=== PATIENT | male | born 1955 | race African-American/Black ===

== ENCOUNTER 2018-03-31 12:45 | Inpatient (IN) ==
[2018-03-31] MEDS ORDERED: KEPPRA 1,000 MG in NS 100 ML IV ONE (13:24)
[2018-03-31] MEDS ORDERED: ATIVAN IV ONE (13:25)
[2018-03-31] MEDS ORDERED: NS 1,000 ML IV ONE ×2 (13:28→19:57)
--- NOTE | 2018-03-31 13:40 | PROVIDER DOCUMENTATION ---
This chart was entered by Lisa Prakash Scribe, acting as scribe for Luciana Jackson MD. HPI-Neurological Disorder - General Chief Complaint: Seizure Stated Complaint: SEIZURE Time Seen by Provider: 03/31/18 13:05 Source: patient, family Allergies/Adverse Reactions: Patient Allergies Allergy/AdvReac Type Severity Reaction Status Date / Time No Known Allergies Allergy Verified 07/13/15 13:32 Home Medications: Home Medication List Medication Instructions Recorded Confirmed Last Taken Type Benazepril/Hydrochlorothiazide 1 each PO DAILY 03/27/14 07/13/15 07/12/15 09:00 History [Benazepril-Hctz 20-25 mg Tab] Losartan [Cozaar] 50 mg PO DAILY 03/27/14 07/13/15 07/12/15 09:00 History Pravastatin Sodium [Pravachol] 20 mg PO HS 03/27/14 07/13/15 07/12/15 20:00 History Famotidine [Pepcid] 40 mg PO DAILY #60 tablet 07/13/15 Unknown Rx Ondansetron Odt [Zofran 8Mg Odt] 8 mg PO Q8H PRN PRN #20 tablet 07/13/15 Unknown Rx - History of Present Illness-Neuro Nature of Presenting Problem: 62 y/o male presents to the ED via EMS after seizure-like activity witnessed by family and also by EMS upon arrival with mild bilateral frontal headache and incontinent of urine. 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 The patient does not remember seizure activity and episodes seem to be approximately every 30 minutes with left arm tightness in flexed position which remains after seizure activity, and leaning to the right during seizure activity and also afterward. The patient is able to talk during seizure activity. The patient does give a history of daily alcohol intake with last drink yesterday of 1/2 to 1 pint of Vodka. Headache Location: reports: frontal (mild bilateral) Onset/Duration: reports: just prior to arrival Timing: reports: intermittent Context: reports: seizure activity Character of Altered Mental Status: reports: seizure activity Any recent trauma/injury?: reports: none Cognitive Baseline: alert, oriented x3 Gait Baseline: other (paraplegic) Associated Symptoms: reports: headache (mild bilateral frontal), seizures. denies: fever/chills, diaphoretic, ringing in ears, vomiting Similar Symptoms Previously?: No Recently seen or treated by another doctor?: No - Seizure First time to have a seizure?: Yes Witnessed seizure?: Yes (family and EMS ) How many seizure episodes?: 3 Approximate time seizures began?: 08:30 Approximate time of the last seizure?: 13:20 Episode Frequency: no prior episodes Status Epilepticus: No Preceding symptoms/context:: recent alcohol or drug use Character of Seizure: reports: lost consciousness, generalized shaking all over Post-ictal Symptoms: reports: headache (mild bilateral frontal) Seizure related injury: none Review of Systems - Adult - REVIEW OF SYSTEMS - ADULT Constitutional: denies: chills, fever, night sweats Eyes: reports: no symptoms reported Ears, Nose, Mouth & Throat: reports: no symptoms reported Cardiovascular: denies: chest pain, palpitations, syncope Respiratory: denies: cough, hemoptysis, shortness of breath, wheezing Gastrointestinal: denies: abdominal pain, diarrhea, nausea, vomiting Genitourinary: reports: other (incontinent of urine following seizure). denies : dysuria, discharge, hematuria Musculoskeletal: reports: no symptoms reported Integumentary: reports: no symptoms reported Neurological: reports: headache/migraines (bilateral frontal), seizure. denies : dizziness/vertigo Psychiatric: reports: no symptoms reported Endocrine: reports: no symptoms reported Hematologic/Lymphatic: reports: no symptoms reported Allergic/Immunologic: reports: no symptoms reported All Other Systems: Reviewed and Negative Past History - Adult - PAST MEDICAL HISTORY-ADULT Review of Records: reports: Old Records Reviewed, Nursing Assessment Review, Medications Reviewed Major Childhood Illnesses: reports: denies history Cardiovascular: reports: HTN Respiratory: reports: denies history Gastrointestinal: reports: denies history Obstetrical/Gynecological: reports: denies history Genitourinary: reports: denies history Musculoskeletal: reports: denies history Neurological: reports: denies history Endocrine/Immune: reports: denies history Other Conditions: reports: denies history - PRIOR SURGERIES/PROCEDURES Surgical/Procedure History: reports: colonoscopy - IMMUNIZATION STATUS Childhood Immunizations: NUTD Flu Vaccine: NUTD - FAMILY HISTORY Family History: reviewed, not pertinent - SOCIAL HISTORY Smoking: cigarettes, greater than 1 pack/day Provider spent 3-5 mins advising pt. on dangers of tobacco.: Discussed manners to quit use, and f/u contacts for add'l counseling. Substance Use: alcohol, marijuana Alcohol Use Frequency: every day Living Situation: family Physical Exam- Neurological - Physical Exam-Neuro Initial Vital Signs Reviewed: Yes General Appearance: alert, other (The patient is leaning to the right) Eye Exam: bilateral eye: normal inspection, PERRL, EOMI HENMT: normocephalic/atraumatic, moist mucous membranes, normal ENT inspection, TMs normal, pharynx normal Head Injury: no evidence of injury. negative: Cedeno's Sign, lacerations, raccoon eyes Neck: non-tender, full range of motion, supple Respiratory: chest non-tender, lungs clear, normal breath sounds, no pleuratic chest pain, no respiratory distress, no accessory muscle use. negative: rales, wheezing Cardiovascular: normal peripheral pulses, regular rate, rhythm, no gallop, no JVD Abdominal Exam: normal bowel sounds, non tender, soft, no organomegaly, no pulsatile mass Lymphatic: no adenopathy Peripheral Pulses: radial (R): 2+, radial (L): 2+, dorsalis-pedis (R): 2+, dorsalis-pedis (L): 2+ Extremity: other ("partial paraplegic" pt able at baseline to ambulate with difficulty, LUE is held flexed at elbow with hand closed, he cannot open the hand or extend at the elbow, mild tremors LLE, was leaning to the right right after an episode when I walked into the room, is able to sit upright now without help between episodes) 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 He is a smoker). negative: aphasia, facial droop Integumentary: normal color, warm/dry Psych/Mental Status: oriented x 3 Progress - PLAN OF CARE/RESULTS Progress/Plan/Lab Results: Vital Signs - 8 hr 03/31/18 12:49 03/31/18 13:27 Pulse Rate 89 Respiratory Rate 16 Blood Pressure 201/115 167/111 O2 Sat by Pulse Oximetry 99 Laboratory Results - last 24 hr 03/31/18 03/31/18 03/31/18 13:46 13:46 14:58 WBC 5.33 RBC 6.11 H Hgb 17.6 Hct 54.1 H MCV 88.5 MCH 28.8 MCHC 32.5 L RDW Std Deviation 16.8 H Plt Count 191 MPV 11.0 H Immature Gran % (Auto) 0.0 Neut % (Auto) 82.3 H Lymph % (Auto) 13.9 L [place] % (Auto) 3.4 Eos % (Auto) 0.2 Baso % (Auto) 0.2 Immature Gran # (Auto) 0.00 Neut # (Auto) 4.39 Lymph # (Auto) 0.74 L [place] # (Auto) 0.18 Eos # (Auto) 0.01 Baso # (Auto) 0.01 PT 13.2 INR 0.93 PTT (Actin FS) 30.6 Sodium Potassium Chloride Carbon Dioxide Anion Gap BUN Creatinine Estimated GFR/1.73 m2 BUN/Creatinine Ratio Glucose Calculated Osmolality Calcium Magnesium Total Bilirubin AST ALT Alkaline Phosphatase Creatine Kinase Troponin T Total Protein Albumin Globulin Albumin/Globulin Ratio Urine Source CATH Urine Color YELLOW Urine Turbidity CLEAR Urine pH 6.0 Ur Specific [place] 1.016 Urine Protein 70 A Ur Glucose (Stick) NEGATIVE Ur Ketones (Stick) TRACE A Urine Blood SMALL A Urine Nitrite NEGATIVE Urine Bilirubin NEGATIVE Urobilinogen Dipstick 3 A Urine Leukocytes NEGATIVE Urine WBC (Auto) <10 Urine RBC (Auto) <10 U Epithel Cells (Auto) <10 Urine Bacteria (Auto) NEGATIVE Urine Opiates Screen Ur Oxycodone Screen Ur Methadone, Qual Ur Barbiturates Screen Ur Phencyclidine Scrn Ur Amphetamines Screen U Benzodiazepines Scrn Urine Cocaine Screen U Cannabinoids Screen Plasma/Serum Ethyl Alc 03/31/18 03/31/18 03/31/18 14:58 17:47 17:47 WBC RBC Hgb Hct MCV MCH MCHC RDW Std Deviation Plt Count MPV Immature Gran % (Auto) Neut % (Auto) Lymph % (Auto) [place] % (Auto) Eos % (Auto) Baso % (Auto) Immature Gran # (Auto) Neut # (Auto) Lymph # (Auto) [place] # (Auto) Eos # (Auto) Baso # (Auto) PT INR PTT (Actin FS) Sodium 137 Potassium 4.0 Chloride 101 Carbon Dioxide 23 L Anion Gap 13 BUN 8 Creatinine 0.6 L Estimated GFR/1.73 m2 > 60 BUN/Creatinine Ratio 13 Glucose 106 H Calculated Osmolality 273 Calcium 8.5 L Magnesium 1.5 Total Bilirubin 0.66 AST 15 ALT 6 L Alkaline Phosphatase 52 Creatine Kinase 90 Troponin T Total Protein 5.6 L Albumin 3.8 Globulin 1.8 Albumin/Globulin Ratio 2.1 Urine Source Urine Color Urine Turbidity Urine pH Ur Specific [place] Urine Protein Ur Glucose (Stick) Ur Ketones (Stick) Urine Blood Urine Nitrite Urine Bilirubin Urobilinogen Dipstick Urine Leukocytes Urine WBC (Auto) Urine RBC (Auto) U Epithel Cells (Auto) Urine Bacteria (Auto) Urine Opiates Screen NONE DETECTED Ur Oxycodone Screen NONE DETECTED Ur Methadone, Qual NONE DETECTED Ur Barbiturates Screen NONE DETECTED Ur Phencyclidine Scrn NONE DETECTED Ur Amphetamines Screen NONE DETECTED U Benzodiazepines Scrn NONE DETECTED Urine Cocaine Screen NONE DETECTED U Cannabinoids Screen PRESUMPTIVE POSITIVE A Plasma/Serum Ethyl Alc 03/31/18 17:47 WBC RBC Hgb Hct MCV MCH MCHC RDW Std Deviation Plt Count MPV Immature Gran % (Auto) Neut % (Auto) Lymph % (Auto) [place] % (Auto) Eos % (Auto) Baso % (Auto) Immature Gran # (Auto) Neut # (Auto) Lymph # (Auto) [place] # (Auto) Eos # (Auto) Baso # (Auto) PT INR PTT (Actin FS) Sodium Potassium Chloride Carbon Dioxide Anion Gap BUN Creatinine Estimated GFR/1.73 m2 BUN/Creatinine Ratio Glucose Calculated Osmolality Calcium Magnesium Total Bilirubin AST ALT Alkaline Phosphatase Creatine Kinase Troponin T < 0.010 Total Protein Albumin Globulin Albumin/Globulin Ratio Urine Source Urine Color Urine Turbidity Urine pH Ur Specific [place] Urine Protein Ur Glucose (Stick) Ur Ketones (Stick) Urine Blood Urine Nitrite Urine Bilirubin Urobilinogen Dipstick Urine Leukocytes Urine WBC (Auto) Urine RBC (Auto) U Epithel Cells (Auto) Urine Bacteria (Auto) Urine Opiates Screen Ur Oxycodone Screen Ur Methadone, Qual Ur Barbiturates Screen Ur Phencyclidine Scrn Ur Amphetamines Screen U Benzodiazepines Scrn Urine Cocaine Screen U Cannabinoids Screen Plasma/Serum Ethyl Alc Orders Category Date Time Status Cardiac Monitoring DIRECTED Care 03/31/18 13:27 Active Saline Loc DIRECTED Care 03/31/18 13:24 Active CHEST-PORTABLE [RAD] Stat Exams 03/31/18 13:[address] HEAD W/O CONTRAST [CT] Stat Exams 03/31/18 13:25 Completed ALCOHOL BLOOD Stat Lab 03/31/18 17:47 Completed BLOOD CULTURE [BLDCUL] Stat Lab 03/31/18 17:47 Results CBC WITH ELECTRONIC DIFF [HEME] Stat Lab 03/31/18 13:46 Completed CK TOTAL [CHEM] Stat Lab 03/31/18 17:47 Completed COMPREHENSIVE METABOLIC PANEL [CHEM] Stat Lab 03/31/18 17:47 Completed MAGNESIUM [CHEM] Stat Lab 03/31/18 17:47 Completed PROTIME WITH INR [COAG] Stat Lab 03/31/18 13:46 Completed PTT [COAG] Stat Lab 03/31/18 13:46 Completed TROPONIN T Stat Lab 03/31/18 17:47 Completed URINALYSIS W/POSS RFLX CULT [URINALYSIS] Stat Lab 03/31/18 14:58 Completed URINE DRUG SCREEN Stat Lab 03/31/18 14:58 Completed 0.9% Sodium Chloride Inj [Ns] 1,000 ml Med 03/31/18 13:28 Discontinued IV 999 mls/hr Clonidine [Catapres] Med 03/31/18 19:42 Discontinued 0.2 mg PO NOW ONE Levetiracetam [Keppra] 1,000 mg Med 03/31/18 13:24 Discontinued 0.9% Sodium Chloride Inj [Ns] 100 ml IV NOW Lorazepam [Ativan] Med 03/31/18 13:25 Discontinued 1 mg IV NOW ONE Oxygen Device Stat Oth 03/31/18 13:26 Active Pulse Oximetry Stat Oth 03/31/18 13:[address] no acute findings, same with chest xray, UA and UDS back - THC, blood work? charge nurse looking into it blood was found in lab and processed, N% shift without increase in total count per VS DBP still high, ordered clonidine and walked into the room and BP wnl, told RN I was cancelling the clonidine and it was 'discontinued' so I am not sure if it was given or not sisters in the room, apologized for the delay on labs and on my delay in returning to the room due to multiple highly critical patients, [address] Santso hospitalist re [facility] labs treatment current status need for overnight obs, agreed to admit Result Diagrams: 03/31/18 13:46 03/31/18 17:47 Departure - Departure Date of Disposition Decision: 03/31/18 Time of Disposition Decision: 19:58 DIAGNOSIS: Focal seizures, Alcohol abuse, Tobacco dependence Disposition: ADMITTED INPATIENT 09 Certified Medical Emergency: Emergent Condition: Good Additional Freetext Instructions: admit to Dr Santos Referrals and Follow-Ups: Lulu Hernandez CRNP [Primary Care Provider] - - Critical Care Note This patient required my direct & personal management of CC.: Yes Total Time (mins): 30 Critical Care Statement: This patient required my direct personal management to treat or rule out processes, the absence of which, could potentiallly result in sudden, clinically significant life or limb threatening deterioration. Attestation - Physician/ SARAH Attestation The physician spent face to face time with patient:: Yes Advanced Practice Provider documentation review:: Supervising physician onsite and consulted in the evaluation and care of this patient. The physician did have a face to face encounter with the patient. - NIH Stroke Scale Level of Consciousness: 0-Alert LOC Questions (ask month and age): 0-Answers Both Correctly LOC Commands (ask to open & close eyes;make a fist, let go): 0-Obeys Both Correctly Best Gaze (horizontal eye movement): 0-Normal Visual (use finger movement, counting or visual threat): 0-No Visual Loss Facial Palsy (show teeth or raise eyebrows & close eyes tght: 0-Symmetrical Movement Motor Function-left arm: 0-Untestable Motor Function-right arm: 0-Normal Motor Function-left le-No Effort Against [place] Motor Function-right le-No Effort Against [place] Limb Ataxia(aenblf-ybmn-[id number], or heel to sin): 0-Untestable Sensory(pin prick to face,arms,trunk,legs-compare side/side): 0-No Ataxia Best Language(name item/read sentence.Ex-Down to Earth): 0-No Aphasia Dysarthria(Pt read words or say words Ex.Mama,Tip-Top,Thanks: 0-Normal Articulation Extinction and Inattention: 0-Normal NIH Total Score: 6 (primarily related to BLE which are 'partial paraplegic') This chart was documented by the indicated scribe, (Lisa Prakash, Scribe) and accurately reflects the services I performed and decisions made by me, Luciana Jackson MD, as attested by the provider's signature.
[2018-03-31 15:08] LABS: URINE SOURCE CATH
[2018-03-31 15:15] LABS: BILIRUBIN URINE NEGATIVE (NEGATIVE); BLOOD URINE SMALL (NEGATIVE); COLOR YELLOW; GLUCOSE URINE NEGATIVE (NEGATIVE); KETONE URINE TRACE mg/dL (NEGATIVE); LEUKOCYTES URINE NEGATIVE (NEGATIVE); NITRITE URINE NEGATIVE (NEGATIVE); PROTEIN URINE 70 mg/dL (NEGATIVE); SP GRAVITY URINE 1.016; TURBIDITY URINE CLEAR (CLEAR); UROBILINOGEN URINE 3 mg/dL (NORMAL)
[2018-03-31 15:16] LABS: UR EPITHELIAL CELLS <10 /HPF (<10); URINE BACTERIA NEGATIVE /HPF; URINE RBC <10 /HPF (<10); URINE WBC <10 /HPF (<10)
[2018-03-31 15:23] LABS: UR AMPHETAMINES QUAL NONE DETECTED (NONE DETECT); UR BARBITUATES QUAL NONE DETECTED (NONE DETECT); UR BENZODIAZEPIN QUAL NONE DETECTED (NONE DETECT); UR CANNABINOIDS QUAL PRESUMPTIVE POSITIVE (NONE DETECT); UR COCAINE QUAL NONE DETECTED (NONE DETECT); UR METHADONE QUAL NONE DETECTED (NONE DETECT); UR OPIATES QUAL NONE DETECTED (NONE DETECT); UR OXYCODONE QUAL NONE DETECTED (NONE DETECT); UR PCP QUAL NONE DETECTED (NONE DETECT)
--- NOTE | 2018-03-31 15:31 | Diag Imaging Result Doc PS360 ---
EXAM: CT HEAD W/O CONTRAST 03/31/2018 HISTORY: head TECHNIQUE: This exam was performed using automated exposure control, adjustment of mA or kV according to patient size, and/or use of iterative reconstruction technique. COMMENT: There is encephalomalacia throughout much of the posterior temporal and parietal cortex and subcortical white matter on the right. This was not the case on 03/27/2014. There is no evidence of bleed or abnormal extra-axial fluid collection. There are several dystrophic calcifications in the right infarct. The visualized paranasal sinuses are clear with the exception of the left maxillary sinus where there is marked mucosal thickening. The right-sided fluid and thickening which was present on the previous study has resolved. IMPRESSION: Old right temporoparietal infarct. Chronic left maxillary sinusitis. Electronically signed by Alban Bentley 03/31/2018 3:29 PM
--- NOTE | 2018-03-31 15:32 | Diag Imaging Result Doc PS360 ---
EXAM: CHEST-PORTABLE 03/31/2018 HISTORY: cough TECHNIQUE: AP upright chest at 1523 COMMENT: There is no evidence of acute cardiac or pulmonary disease. Compared to 03/27/2014 there has been no significant change considering differences in technique. IMPRESSION: Stable chest. Electronically signed by Alban Bentley 03/31/2018 3:30 PM
[2018-03-31 17:48] LABS: INR 0.93; PROTIME 13.2 Seconds (11.0-16.0); PTT 30.6 Seconds (22.3-41.8)
[2018-03-31 18:03] LABS: BASO# 0.01 X1000 (0.0-0.2); BASO% 0.2 % (0.0-0.8); EOS# 0.01 X1000 (0.0-0.7); EOS% 0.2 % (0.0-10.0); HEMATOCRIT 54.1 % (42.0-52.0); HEMOGLOBIN 17.6 g/dL (14.0-18.0); LYMPH# 0.74 X1000 (1.2-3.4); LYMPH% 13.9 % (20.5-51.1); MCH 28.8 PG (27-31); MCHC 32.5 g/dL (33-37); MCV 88.5 FL (81-99); MONO# 0.18 X1000 (0.11-0.59); MONO% 3.4 % (1.7-9.3); NEUT# 4.39 X1000 (1.4-6.5); NEUT% 82.3 % (42.2-75.2); PLT 191 X1000 (130-400); RBC 6.11 XMIL (4.7-6.1); RDW 16.8 % (11.5-14.5); WBC 5.33 X1000 (4.8-10.8)
[2018-03-31 18:29] LABS: AGAP 13; ALB/GLOB RATIO 2.1; ALBUMIN 3.8 g/dL (3.5-5.0); ALKALINE PHOSPHATASE 52 U/L (32-122); BUN 8 mg/dL (8-22); CALCIUM 8.5 mg/dL (8.8-10.2); CHLORIDE 101 mmol/L (98-107); CK TOTAL 90 U/L (24-204); COSMO 273; CREATININE 0.6 mg/dL (0.7-1.2); ESTIMATED GFR > 60; GLUCOSE 106 mg/dL (70-104); GOT 15 U/L (10-34); GPT 6 U/L (10-44); MAGNESIUM 1.5 mg/dL (1.5-2.7); SODIUM 137 mmol/L (136-145); TCO2 23 mmol/L (25-35); TOTAL BILIRUBIN 0.66 mg/dL (0.20-1.00); TOTAL PROTEIN 5.6 g/dL (6.3-8.3)
[2018-03-31] MEDS ORDERED: CATAPRES PO ONE (19:42)
--- NOTE | 2018-03-31 21:24 | HISTORY AND PHYSICAL ---
PRIMARY CARE PHYSICIAN: None. CHIEF COMPLAINT: Seizure-like activity. HISTORY OF PRESENTING ILLNESS: A 62-year-old male with a history of hypertension and left-sided paresis from chronic nerve damage who had presented to emergency department because family witnessed seizure-like activity. The patient apparently has a history of chronic alcoholism drinking about a pint of vodka per day. He states his last drink was yesterday or so. He was evaluated in the emergency department and due to his presenting symptoms, it was thought that we will place him for observation for further evaluation. At the time of my examination he denied any fever, chills, chest pain, shortness of breath, hemoptysis but complained of having a headache. PAST MEDICAL HISTORY: Of hypertension. PAST SURGICAL HISTORY: Cervical fusion. ALLERGIES: No known drug allergies. CURRENT MEDICATIONS: As listed in medication reconciliation sheet. SOCIAL HISTORY: A 30 pack years history of smoking. Admits to drinking beer and vodka daily, admits to marijuana use. FAMILY HISTORY: Positive for coronary disease father. REVIEW OF SYSTEMS: Fourteen point review of systems is as in HPI other systems negative. PHYSICAL EXAMINATION: GENERAL: Cooperative, friendly male, he is resting comfortably now. VITAL SIGNS: Pulse 89, respiratory 16, blood pressure 167/111. HEENT: Atraumatic normocephalic. Extraocular movements intact. PERRLA. NECK: No masses. CHEST: Clear to auscultation. CARDIOVASCULAR: Regular rate and rhythm. ABDOMEN: Soft, positive bowel sounds. EXTREMITIES: No edema. NEURO: Awake, alert, oriented x3. Strength 3/5 left upper and lower extremities . : No bladder distention. SKIN: Warm. LABORATORIES AND STUDIES: WBC 5.33, hemoglobin 17.6, hematocrit 54.1, platelets 191,000. Sodium 137, potassium 4.0, chloride 100, CO2 23, BUN is 8, creatinine 0.86, glucose 106. ASSESSMENT: A 62-year-old male with a history of hypertension and chronic alcoholism who had presented to emergency department when family witnessed seizure-like activity. He was evaluated in the emergency department. Due to his presenting symptoms will place him for observation further evaluation and management . 1. Possible seizure secondary to alcohol withdrawal. 2. Hypertension. 3. Tobacco abuse. PLAN: 1. We will admit patient to medical floor with telemetry. 2. We will put patient on seizure precautions. 3. Will use Ativan p.r.n. 4. We will start patient on banana bag. 5. Counseled him on smoking and alcohol cessation. 6. Monitor blood pressure closely. 7. Put patient on DVT prophylaxis SCD. 8. Continue follow and reassess make further recommendation based on patient's clinical course. cc: Nilay Santos MD MTDD
[2018-04-01] MEDS ORDERED: M.V.I.-12 10 ML, FOLIC ACID 1 MG, MAGNESIUM SULFATE 1 GM, THIAMINE 100 MG in NS 1,000 ML IV ONE (03:04)
[2018-04-01] MEDS ORDERED: ATIVAN IV PRN (03:04)
[2018-04-01] MEDS ORDERED: ZOFRAN IV PRN (03:04)
[2018-04-01 04:11] LABS: BASO# 0.01 X1000 (0.0-0.2); BASO% 0.2 % (0.0-0.8); EOS# 0.04 X1000 (0.0-0.7); EOS% 0.7 % (0.0-10.0); HEMATOCRIT 42.8 % (42.0-52.0); HEMOGLOBIN 14.2 g/dL (14.0-18.0); LYMPH# 2.25 X1000 (1.2-3.4); MCH 29.3 PG (27-31); MCHC 33.2 g/dL (33-37); MCV 88.4 FL (81-99); MONO# 0.38 X1000 (0.11-0.59); MONO% 6.8 % (1.7-9.3); MPV 10.1 FL (7.4-10.4); NEUT# 2.94 X1000 (1.4-6.5); NEUT% 52.3 % (42.2-75.2); PLT 172 X1000 (130-400); RBC 4.84 XMIL (4.7-6.1); RDW 15.9 % (11.5-14.5); WBC 5.62 X1000 (4.8-10.8)
[2018-04-01 04:16] LABS: AGAP 11; ALB/GLOB RATIO 1.6; ALBUMIN 3.3 g/dL (3.5-5.0); ALKALINE PHOSPHATASE 46 U/L (32-122); BUN 8 mg/dL (8-22); CHLORIDE 105 mmol/L (98-107); COSMO 278; CREATININE 0.6 mg/dL (0.7-1.2); ESTIMATED GFR > 60; GLUCOSE 104 mg/dL (70-104); GOT 15 U/L (10-34); GPT 6 U/L (10-44); MAGNESIUM 1.5 mg/dL (1.5-2.7); POTASSIUM 3.3 mmol/L (3.5-5.1); SODIUM 140 mmol/L (136-145); TCO2 24 mmol/L (25-35); TOTAL BILIRUBIN 0.97 mg/dL (0.20-1.00); TOTAL PROTEIN 5.4 g/dL (6.3-8.3)
[2018-04-01 07:55] LABS: BASO# 0.01 X1000 (0.0-0.2); BASO% 0.2 % (0.0-0.8); EOS# 0.02 X1000 (0.0-0.7); EOS% 0.4 % (0.0-10.0); HEMATOCRIT 44.1 % (42.0-52.0); HEMOGLOBIN 14.5 g/dL (14.0-18.0); LYMPH# 2.02 X1000 (1.2-3.4); LYMPH% 36.8 % (20.5-51.1); MCH 29.1 PG (27-31); MCHC 32.9 g/dL (33-37); MCV 88.6 FL (81-99); MONO# 0.39 X1000 (0.11-0.59); MONO% 7.1 % (1.7-9.3); MPV 10.9 FL (7.4-10.4); NEUT# 3.05 X1000 (1.4-6.5); NEUT% 55.5 % (42.2-75.2); PLT 169 X1000 (130-400); RBC 4.98 XMIL (4.7-6.1); WBC 5.49 X1000 (4.8-10.8)
[2018-04-01 08:18] LABS: AGAP 11; BUN 7 mg/dL (8-22); CHLORIDE 104 mmol/L (98-107); COSMO 273; CREATININE 0.6 mg/dL (0.7-1.2); ESTIMATED GFR > 60; GLUCOSE 94 mg/dL (70-104); POTASSIUM 3.2 mmol/L (3.5-5.1); SODIUM 138 mmol/L (136-145); TCO2 23 mmol/L (25-35)
[2018-04-01 13:40] VITALS: BP 157/91
[2018-04-01] MEDS ORDERED: KLOR-CON PO ONE (15:41)
[2018-04-01] MEDS ORDERED: PRAVACHOL PO SCH (21:00)
[2018-04-02] MEDS ORDERED: LOTENSIN PO SCH (09:00)
[2018-04-02] MEDS ORDERED: COZAAR PO SCH (09:00)
[2018-04-02] MEDS ORDERED: PEPCID PO SCH (09:00)
[2018-04-02] MEDS ORDERED: HYDROCHLOROTHIAZIDE PO SCH (09:00)
--- NOTE | 2018-04-02 10:06 | DISCHARGE SUMMARY ---
ADMISSION DATE: 03/31/2018 DISCHARGE DATE: 04/01/2018 DIAGNOSIS: Possible seizure. This is a 62-year-old gentleman presenting with hypertension, history of alcohol use, and possible witnessed seizure. He does drink regularly. He was admitted for possible withdrawals, started on banana bag, given Ativan p.r.n. 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 The patient agreed to stop alcohol. We discussed about treatment options. We will go ahead and initiate a Librium taper in addition to his other medications. He was given Keppra yesterday, but he was not maintained on that, and he has been seizure-free and he has no tremulousness. He has not actually been kept on any withdrawal medicines either, but we will give him withdrawal medicines to go home with, just to be on the safe side. DISCHARGE MEDICATIONS: Benazepril, hydrochlorothiazide 20/25. He is also on losartan 50. So he is on Javi and an ARB, Pravachol 20, Librium taper, Pepcid 40, Zofran p.r.n. His kidney function is fine, but I am not sure the benefit of adding an JAVI inhibitor to an ARB, but I will recommend his PCP, re-evaluate his medications, which is BRETT Mayorga. DISCHARGE CONDITION: Stable. Continue to follow closely. cc: Alden Arevalo MD
== END 2018-04-01 17:46 | disposition home or self-care (01) | DRG 101 ==
LOC: ED 12:45 → SUATTDRO 21:20 → 3N 21:20
PROVIDERS: ATTEND Internal Medicine
CPT/HCPCS: 70450; 71010; 71045; 80048; 80053; 80101; 80301; 80307; 80320; 80324; 80345; 80346; 80353; 80358; 80361; 80365; 81001; 82055; 82550; 83735; 83992; 84484; 85025; 85610; 85730; 87040; 96374; 96375; 99285; 99291; A9270; G0431; G0434; G0479; G0480; G6040; J1953; J2060; J3411; J3475; J7030